=== PATIENT | female | born 1970 | race Caucasian/White ===

== ENCOUNTER → 2024-11-17 16:49 | Outpatient (REF) | payer OTHER, SELFPAY | LOC: RAD 16:49 | PROVIDERS: ATTENDING PHYSICIAN Nurse Practitioner Primary Care; FAMILY PHYSICIAN Family Medicine | DX: M25.512 Pain in left shoulder (principal); M75.02 Adhesive capsulitis of left shoulder | CPT/HCPCS: 73030 ==